=== PATIENT | female | born 1970 | race Caucasian/White ===

== ENCOUNTER 2023-09-03 18:59 | Emergency (ER) | payer OTHER, SELFPAY ==
--- NOTE | ~2023-09-03 | XR_ITS ---
EXAM: XR shoulder LT min 2V DATE: 09/03/2023 20:05 HISTORY: shoulder pain, NKI, PAIN POSTERIOR RADATES ANTERIOR X3 WKS . COMPARISON: None available. FINDINGS: Decreased mineralization. No fracture or dislocation. No lytic or blastic lesion. Mild AC joint osteoarthritis. No erosion or periosteal change. Soft tissues within normal limits. IMPRESSION: No acute osseous finding in the left shoulder. Reviewed, dictated and finalized at location K.
--- NOTE | ~2023-09-03 | XR_ITS ---
EXAMINATION: XR chest 2V Exam Date/Time: 09/03/2023 22:18 CDT HISTORY: CP, L shoulder pain Comparison: None. RESULT: Lines, tubes, and devices: None. Lungs and pleura: Biapical pleural scarring. Increased lung volumes. Increased AP diameter and diaph ragm flattening. No focal consolidation, pleural effusion, or pneumothorax. Cardiomediastinal silhouette: Unremarkable. Other: No acute osseous or upper abdominal finding. IMPRESSION: No acute cardiopulmonary process. Emphysematous changes. Reviewed, dictated and finalized at location K.
[2023-09-03 19:08] VITALS: BP 115/69; PULSE 95; RESP 16; TEMP 36.6; O2SAT 99
[2023-09-03 22:09] VITALS: BP 126/87; PULSE 76; RESP 17; O2SAT 100
[2023-09-03 22:13] LABS: Basophils Absolute Auto 0.1 K/mm3 (0.0-0.1); Basophils Percent Auto 1.3 % (0.2-1.2); Eosinophils Percent Auto 14.3 % (0-4.4); Hematocrit 39.2 % (37.0-47.0); Hemoglobin 12.5 g/dL (12.0-15.0); Immature Granulocyte Absolute 0.01 K/mm3 (0.00-0.031); Immature Granulocyte Percent A 0.1 % (0-0.5); Lymphocytes Absolute Auto 2.41 K/mm3 (0.9-3.2); Lymphocytes Percent Auto 34.9 % (18.3-44.2); Mean Corpuscular HGB Conc 31.9 g/dl (32-36); Mean Corpuscular Hemoglobin 29.1 pg (26-34); Mean Corpuscular Volume 91.4 fl (80-100); Mean Platelet Volume 9.7 fl (7.4-10.4); Monocytes Absolute Auto 0.5 K/mm3 (0.1-0.6); Monocytes Percent Auto 7.1 % (2.6-8.5); Neutrophils Absolute Auto 2.9 K/mm3 (1.3-6.7); Neutrophils Percent Auto 42.3 % (45.5-73.1); Platelet Count Result 198 k/mm3 (150-375); Red Blood Count 4.29 M/mm3 (4.2-5.4); Red Cell Distribution Width 13.2 % (11.5-14.5); White Blood Count 6.9 K/mm3 (4.5-10.0)
--- NOTE | 2023-09-03 22:18 | ECG_ITS ---
Measurements Intervals Wheeler Rate: 74 P: 61 OK: 150 QRS: 30 QRSD: 82 T: 56 QT: 386 AVG RR 802 QTc: 414 QTcB 431 QTcF 415 Interpretive Statements SINUS RHYTHM WITH SINUS ARRHYTHMIA NORMAL ECG SEE SCANNED COPY FOR SIGNATURE MTDD
[2023-09-03 22:24] LABS: Alanine Aminotransferase 17 U/L (6-35); Albumin Level 4.7 g/dL (3.5-5.1); Alkaline Phosphatase 53 U/L (38-126); Anion Gap 5 mmol/L (4-12); Aspartate Amino Transferase 23 U/L (14-36); Bilirubin,Total 0.9 mg/dL (0.2-1.3); Blood Urea Nitrogen 21 mg/dL (7-17); Calcium 9.5 mg/dL (8.4-10.2); Carbon Dioxide 29 mmol/L (22-30); Chloride 104 mmol/L (98-107); Estimated CRCL calculation 55 ml/min; Estimated Glomerular Filt Rate 58; Glucose 81 mg/dL (65-110); INR 0.9; Potassium 3.7 mmol/L (3.4-5.0); Prothrombin Time 12.7 Seconds (11.1-14.7); Sodium 138 mmol/L (137-145)
[2023-09-03 22:25] LABS: Partial Thromboplastin Time 27.3 Seconds (22.3-36.8)
[2023-09-03 22:36] LABS: Troponin I < 0.012 ng/mL (0.000-0.034)
--- NOTE | 2023-09-03 22:39 | ED.GENADULT ---
HPI - General Adult General Chief complaint: Back Pain/Injury Stated complaint: pinch nerve Time Seen by Provider: 09/03/23 21:25 Source: patient Mode of arrival: ambulatory Limitations: no limitations History of Present Illness HPI narrative: Patient is a 53 y/o female who presents to the ED with c/o L shoulder and chest pain. Patient reports having L sided shoulder and neck pain intermittently for the past 3 weeks. Reports she does lots of strenuous and heavy lifting at work and frequently has pain after work. She has been using ice/heat, Tylenol/ibuprofen with minimal improvement. Today at work, patient reported pain began radiating to her left-sided chest around 5:00 p.m.. Feels like a pressure/heaviness. Patient then prompted here. She has not take anything for pain since around 1:00 p.m. today. Pain worse with movement and twisting. Denies shortness of breath. Denies recent cough or cold symptoms. Denies lower extremity pain or swelling. Denies paresthesias in left upper extremity. Denies fevers. Denies known injury. Related Data Allergies Allergy/AdvReac Type Severity Reaction Status Date / Time No Known Allergies Allergy Verified 09/03/23 19:01 Review of Systems Review of Systems: CONSTITUTIONAL: Denies fever, chills, or sweats. CARDIOVASCULAR: See HPI. RESPIRATORY: Denies cough or dyspnea. GASTROINTESTINAL: Denies abdominal pain, nausea, vomiting. MUSCULOSKELETAL: See HPI. NEUROLOGIC: Denies headache, dizziness, numbness, or weakness. All systems reviewed & are unremarkable except as noted in HPI and below Exam Narrative: GENERAL: Well appearing, thin, non-toxic, in no acute distress. HEAD: Normocephalic, atraumatic. RESPIRATORY: Airway patent, respirations nonlabored. Clear to auscultation bilaterally, no rales, rhonchi, wheezing. CARDIOVASCULAR: Regular rate and rhythm without murmurs, rubs, or gallops. Radial pulses intact bilaterally. MUSCULOSKELETAL: Moves all extremities. No gross deformities. Tenderness to palpation across anterior and superior left shoulder, extending into left trapezius region. No significant midline cervical spinal tenderness. No significant chest wall tenderness to palpation. Sensation is intact throughout left upper extremity. No numbness. SKIN: Warm, dry, normal color. NEURO: A&O X3. Speech clear. Cranial nerves II-XII grossly intact. No ataxic movements. PSYCHIATRIC: Appropriate mood and affect. Normal interaction. Course Vital Signs Vital signs: Vital Signs Temperature 97.9 F 09/03/23 19:08 Pulse Rate 95 09/03/23 19:08 Respiratory Rate 16 09/03/23 19:08 Blood Pressure 115/69 09/03/23 19:08 Pulse Oximetry 99 09/03/23 19:08 Oxygen Delivery Room Air 09/03/23 19:08 Temperature 97.9 F 09/03/23 19:08 Pulse Rate 56 L 09/03/23 22:54 Respiratory Rate 12 09/03/23 22:54 Blood Pressure 137/90 09/03/23 22:54 Pulse Oximetry 100 09/03/23 22:54 Oxygen Delivery Room Air 09/03/23 19:08 Medical Decision Making MDM Narrative Medical decision making narrative: Patient presented to ED with several week history of left-sided shoulder and neck pain, radiating into chest today. Vital signs are stable upon arrival. Patient in no acute distress. Will obtain cardiac workup to further evaluate. Patient with HEART score =1 based on age. No other significant risk factors for heart disease. Low suspicion for acute ACS at this time. EKG without concerning ST changes. NSR. Baseline troponin is negative. Chest x-ray is clear. Left shoulder x-ray is unremarkable. No acute osseous abnormality. No fracture/dislocation. Suspect musculoskeletal etiology/muscular strain. Patient given Toradol, Tylenol, Solu-Medrol in the ED. On reeval, feeling better with supportive therapy. Chest pain resolved. Neck/shoulder pain improved. Discussed reassuring workup thus far. Discussed obtaining 3 hour troponin to further rule out cardiac etiology. Uti
[2023-09-03] MEDS: methylPREDNISolone SOD SUCC 125 MG VIAL IV PUSH (22:46)
[2023-09-03] MEDS: KETOROLAC 30 MG/ML VIAL (*BKC) IV PUSH (22:48)
[2023-09-03] MEDS: ACETAMINOPHEN 500 MG TABLET 1000 MG PO (22:49)
[2023-09-03 22:54] VITALS: BP 137/90; PULSE 56; RESP 12; O2SAT 100
[2023-09-03 23:45] VITALS: BP 121/81; PULSE 70; RESP 16; O2SAT 100
== END 2023-09-03 23:45 | disposition home or self-care (01) ==
PROVIDERS: Emergency Provider Physician Assistant
DX: S46.912A Strain of unspecified muscle, fascia and tendon at shoulder and upper arm level, left arm, initial encounter (principal); R07.89 Other chest pain; S29.012A Strain of muscle and tendon of back wall of thorax, initial encounter; I49.8 Other specified cardiac arrhythmias; X50.0XXA Overexertion from strenuous movement or load, initial encounter
CPT/HCPCS: 36415; 71046; 73030; 80053; 84484; 85025; 85610; 85730; 93005; 96374; 96375; 99284; A9270; J1885; J2919